=== PATIENT | female | born 1970 | race Caucasian/White ===

== ENCOUNTER → 2022-12-15 13:12 | Outpatient (BNVA) | payer OTHER, SELFPAY | PROVIDERS: Visit Provider Physician Assistant Medical | DX: M23.92 Unspecified internal derangement of left knee (principal) | CPT/HCPCS: 73564; 99203 ==

== ENCOUNTER → 2022-12-17 11:12 | Outpatient (BNVA) | payer OTHER, SELFPAY | PROVIDERS: Visit Provider Internal Medicine | DX: M23.92 Unspecified internal derangement of left knee (principal) | CPT/HCPCS: 99213 ==

== ENCOUNTER → 2022-12-24 13:02 | Outpatient (BNVA) | payer OTHER, SELFPAY | PROVIDERS: Visit Provider Internal Medicine | DX: M23.92 Unspecified internal derangement of left knee (principal) | CPT/HCPCS: 99213 ==

== ENCOUNTER 2022-12-25 14:40 | Outpatient (REF) | payer OTHER, SELFPAY ==
--- NOTE | ~2022-12-25 | MR_ITS ---
EXAMINATION: MR KNEE WITHOUT CONTRAST, LEFT CLINICAL INFORMATION: Fell on left knee. Pain posteriorly. Painful. COMPARISON: None. TECHNIQUE: MRI of the knee without contrast was performed using routine sequences on a high-field scanner. FINDINGS: MENISCI: MEDIAL MENISCUS: There is a complex tear of the posterior horn and body with a high-grade radial component at the posterior horn as well as an ill-defined degenerative horizontal component extending from the posterior horn into the meniscal body. There is significant associated loss of meniscal tissue. Meniscal body is partially extruded. Surrounding soft tissues are edematous. LATERAL MENISCUS: The posterior horn is avulsed at the root with marked associated marrow edema signal along the torn margin. Meniscal body is partially extruded. Intrasubstance degeneration is present at the anterior root. LIGAMENTS: CRUCIATE: ACL is absent, most consistent with a chronic tear with ligamentous resorption. There is increased intrasubstance signal in the PCL which is most likely due to mucoid ligamentous degeneration, though a chronic partial tear is also possible. COLLATERAL: Edema signal around the MCL is likely reactive to the underlying meniscal abnormality. Collateral ligaments are intact. EXTENSOR MECHANISM: Intact ARTICULAR CARTILAGE/BONE: PATELLOFEMORAL COMPARTMENT: High-grade nonuniform articular cartilage loss is evident in the lateral patellar facet, median ridge, lateral trochlear facet, and central trochlear groove with moderate size marginal osteophytes and articular cortical irregularity. More [id number] nonuniform cartilage loss is evident at the medial facets. MEDIAL COMPARTMENT: Severe nonuniform articular cartilage loss is evident at the medial femoral condyle weightbearing surface diffusely with articular cortical remodeling, subcortical edema, and marginal osteophytes. High-grade cartilage loss is also present at the medial half of the medial tibial plateau with underlying articular cortical remodeling, articular sclerosis, and subarticular cystic change. Large marginal osteophytes. LATERAL COMPARTMENT: Moderate nonuniform chondral thinning is present at the medial halves of the weightbearing surfaces of the lateral femoral condyle and lateral tibial plateau. Moderate size marginal osteophytes. More mild chondral thinning at the remainder the articular surfaces. JOINT FLUID AND BURSAE: Small complex joint effusion. Small Deng's cyst. MR/MR knee LT wo con IMPRESSION: 1. Severe medial compartment osteoarthritis with a complex degenerative tear of the posterior horn and body of the medial meniscus. 2. Posterior root avulsion of the lateral meniscus with partial extrusion of the meniscal body, likely acute to subacute in nature. 3. [id number] patellofemoral compartment osteoarthritis. 4. [id number] lateral compartment osteoarthritis. 5. 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 6. Small complex joint effusion and Deng's cyst.
== END 2022-12-25 14:41 | disposition home or self-care (01) ==
LOC: HO.MRI 14:40
PROVIDERS: Visit Provider Internal Medicine
DX: M25.562 Pain in left knee (principal)
CPT/HCPCS: 73721